=== PATIENT | male | born 1990 | race American Indian/Alaskan Native ===

== ENCOUNTER 2016-05-16 05:16 | Emergency (ER) | payer SELFPAY ==
--- NOTE | 2016-05-16 07:54 | XRay Report ---
SUPINE KUB: History: Constipation. The abdominal gas pattern is unremarkable. No masses or organomegaly is identified and there is no gross evidence of free air or fluid. No significant soft tissue calcifications are noted. IMPRESSION: Normal study.
[2016-05-16 08:01] LABS: Basophils % (Auto) 0.5 % (0.0-1.8); Eosinophils % (Auto) 0.5 % (0.0-4.3); Hematocrit 43.9 % (35.5-45.6); Hemoglobin 14.9 gm/dl (11.8-15.2); Mean Corpuscular HGB Conc 34 % (32-34); Mean Corpuscular Hemoglobin 28 pg (28-32); Mean Corpuscular Volume 84 fl (84-94); Platelet Count 197 K/mm3 (140-440); Red Blood Count 5.24 M/mm3 (3.65-5.03); Red Cell Distribution Width 12.5 % (13.2-15.2); White Blood Count 4.8 K/mm3 (4.5-11.0)
[2016-05-16 08:09] LABS: Amylase 71 units/L (27-131); Anion Gap 14 mmol/L; BUN/Creatinine Ratio 7.69; Blood Urea Nitrogen 10 mg/dL (9-20); Calcium 8.7 mg/dL (8.4-10.2); Carbon Dioxide 29 mmol/L (22-30); Chloride 99.4 mmol/L (98-107); Glucose 108 mg/dL (75-100); Lipase 19 units/L (13-60); Potassium 3.8 mmol/L (3.6-5.0); Sodium 139 mmol/L (137-145)
--- NOTE | 2016-05-16 08:32 | Emergency Department Report ---
HPI - General Chief Complaint: Rectal Pain Time Seen by Provider: 05/16/16 07:15 - HPI HPI: 25-year-old male presents today with rectal pain 4 days. Patient states he's been constipated for 4 days. Positive for history of constipation and straining. Denies any rectal bleeding at this time. Patient states that he had diarrhea prior to arrival. Also complaining of sharp epigastric pain that comes and goes 3 days. Denies trying any medication for symptomatic relief. Denies history of hemorrhoids and states he does not feel a pulse and at the anal area. Denies fever, chills, nausea, vomiting, chest pain, shortness of breath, urinary symptoms, penile discharge. ED Past Medical Hx - Past Medical History Previous Medical History?: No - Surgical History Past Surgical History?: Yes Additional Surgical History: hernia. torn shoulder. condral flap tear rigth knee - Social History Smoking Status: Never Smoker Substance Use Type: Marijuana - Medications Home Medications: Home Medications Medication Instructions Recorded Confirmed Last Taken Type Docusate Sodium [Colace] 100 mg PO BID PRN #60 capsule 05/16/16 Unknown Rx Hydrocortisone [Anucort-HC SUPPOS] 25 mg RC BID #12 supp.rect 05/16/16 Unknown Rx ED Review of Systems ROS: Stated complaint: CONSTIPATION/STOMACH PAIN Other details as noted in HPI Constitutional: denies: chills, fever, malaise Eyes: denies: eye pain ENT: denies: ear pain, throat pain, congestion Respiratory: denies: cough, shortness of breath, wheezing Cardiovascular: denies: chest pain, palpitations Endocrine: no symptoms reported Gastrointestinal: abdominal pain, diarrhea, constipation. denies: nausea, vomiting, melena, hematochezia Genitourinary: denies: urgency, dysuria, frequency, discharge Neurological: denies: headache, weakness Physical Exam - Physical Exam Vital Signs: Vital Signs 05/16/16 05:21 Temperature 98.1 F Pulse Rate 73 Respiratory 18 Rate Blood Pressure 105/77 O2 Sat by Pulse 100 Oximetry Physical Exam: GENERAL: The patient is well-developed and well-nourished. Patient is in NAD. HEAD: Normocephalic. Atraumatic. CHEST/LUNGS: Clear to auscultation throughout. HEART/CARDIOVASCULAR: Regular rate and rhythm. ABDOMEN: Abdomen is soft, nontender. Bowel sounds normoactive. No guarding or rebound tenderness. Negative for CVA tenderness bilaterally. RECTAL: Unable to fully examine internally due to pain and patient unwillingness. No hemorrhoids or fistulas noted externally. No bleeding noted. EXTREMITIES: Peripheral pulses intact. Capillary refill less than 2 seconds. NEURO: Alert and oriented x 3. Normal gait. STOOL GUAIAC = NEGATIVE ED Course Vital Signs 05/16/16 05:21 Temperature 98.1 F Pulse Rate 73 Respiratory 18 Rate Blood Pressure 105/77 O2 Sat by Pulse 100 Oximetry ED Medical Decision Making - Lab Data Result diagrams: 05/16/16 07:44 05/16/16 07:44 Vital Signs 05/16/16 05:21 Temperature 98.1 F Pulse Rate 73 Respiratory 18 Rate Blood Pressure 105/77 O2 Sat by Pulse 100 Oximetry Lab Results 05/16/16 05/16/16 05/16/16 Range/Units 07:44 07:44 07:54 WBC 4.8 (4.5-11.0) K/mm3 RBC 5.24 H (3.65-5.03) M/mm3 Hgb 14.9 (11.8-15.2) gm/dl Hct 43.9 (35.5-45.6) % MCV 84 (84-94) fl MCH 28 (28-32) pg MCHC 34 (32-34) % RDW 12.5 L (13.2-15.2) % Plt Count 197 (140-440) K/mm3 Lymph % (Auto) 37.8 H (13.4-35.0) % [place] % (Auto) 8.5 H (0.0-7.3) % Eos % (Auto) 0.5 (0.0-4.3) % Baso % (Auto) 0.5 (0.0-1.8) % Lymph # 1.8 (1.2-5.4) K/mm3 [place] # 0.4 (0.0-0.8) K/mm3 Eos # 0.0 (0.0-0.4) K/mm3 Baso # 0.0 (0.0-0.1) K/mm3 Seg Neutrophils % 52.7 (40.0-70.0) % Seg Neutrophils # 2.5 (1.8-7.7) K/mm3 Sodium 139 (137-145) mmol/L Potassium 3.8 (3.6-5.0) mmol/L Chloride 99.4 (98-107) mmol/L Carbon Dioxide 29 (22-30) mmol/L Anion Gap 14 mmol/L BUN 10 (9-20) mg/dL Creatinine 1.3 (0.8-1.5) mg/dL Estimated GFR > 60 ml/min BUN/Creatinine Ratio 7.69 % Glucose 108 H (75-100) mg/dL Calcium 8.7 (8.4-10.2) mg/dL Amylase 71 (27-131) units/L Lipase 19 (13-60) units/L Urine Color Straw (Yellow) Urine Turbidity Clear (Clear) Urine pH 7.0 (5.0-7.0) Ur Specific [place] 1.006 (1.003-1.030) Urine Protein <15 mg/dl (Negative) mg/dL Urine Glucose (UA) Neg (Negative) mg/dL Urine Ketones Neg (Negative) mg/dL Urine Blood Neg (Negative) Urine Nitrite Neg (Negative) Urine Bilirubin Neg (Negative) Urine Urobilinogen < 2.0 (<2.0) mg/dL Ur Leukocyte Esterase Neg (Negative) Urine WBC (Auto) < 1.0 (0.0-6.0) /HPF Urine RBC (Auto) 2.0 (0.0-6.0) /HPF U Epithel Cells (Auto) < 1.0 (0-13.0) /HPF Urine Mucus Few /HPF - Radiology Data Radiology results: report reviewed KUB: Abdominal gas pattern is unremarkable. No masses or organomegaly is identified and there is no gross evidence of free air or fluid. No significant soft tissue calcifications are noted. - Medical Decision Making 25-year-old male presents today with rectal pain and history of constipation. His stool guaiac is negative. His KUB revealed unremarkable abdominal gas pattern. No masses or organomegaly and no evidence of free air or fluid. His lab results are within normal limits. Patient is in no acute distress at this time. He will be discharged home and is encouraged to follow up with a primary care provider and GI specialist, referral has been provided. He is encouraged to return to the emergency room for any worsening symptoms. Critical care attestation.: If time is entered above; I have spent that time in minutes in the direct care of this critically ill patient, excluding procedure time. ED Disposition Clinical Impression: Rectal pain Disposition: DISCHARGED TO HOME OR SELFCARE Is pt being admited?: No Does the pt Need Aspirin: No Condition: Stable Instructions: Hydrocortisone (Rectal), Hemorrhoids (ED), Constipation (ED) Additional Instructions: Follow with primary care provider. Return to the emergency department if symptoms worsen. Prescriptions: Docusate Sodium [Colace] 100 mg PO BID PRN #60 capsule PRN Reason: Constipation Hydrocortisone [Anucort-HC SUPPOS] 25 mg RC BID #12 supp.rect Referrals: PRIMARY CARE, [Primary Care Provider] - 3-5 Days DOROTA LANDRY MD [Staff Physician] - 3-5 Days GERARDO BILLINGSLEY MD [Staff Physician] - 3-5 Days Forms: Work/School Release Form(ED) Time of Disposition: 09:55
[2016-05-16 08:53] LABS: Bilirubin,Urine NEG (Negative); Blood,Urine NEG (Negative); Ketones,Urine NEG (Negative); Leukocyte Esterase,Urine NEG (Negative); Mucus,Urine FEW /HPF; Nitrite,Urine NEG (Negative); Protein,Urine <15 mg/dL mg/dL (Negative); Urobilinogen,Urine < 2.0 mg/dL (<2.0); WBC,Urine < 1.0 /HPF (0.0-6.0)
[2016-05-16 10:21] VITALS: BP 141/59
== END 2016-05-16 10:21 | disposition home or self-care (01) ==
LOC: ED 05:16
DX: K62.89 Other specified diseases of anus and rectum (principal); R10.13 Epigastric pain; R19.7 Diarrhea, unspecified; F12.10 Cannabis abuse, uncomplicated
CPT/HCPCS: 36415; 74000; 80048; 81001; 82150; 83690; 85025